=== PATIENT | male | born 2000 | race Caucasian/White ===

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

== ENCOUNTER 2020-02-17 04:28 | Emergency (ER) | payer BC, OTHER ==
[~2020-02-17] VITALS: Ht 188 cm; Wt 98.7 kg
--- OUTSIDE RECORDS SUMMARY | 2020-02-17 04:30 | XMS ---
PreManage Notification: ORESTES CAMARA Security Physician Chief Of Pathology Events No recent Security Events currently on file CRITERIA MET - [facility] Has Care Guidelines CARE PROVIDERS There are no care providers on record at this time. Guidelines Source: [facility] [place] Guidelines Date: 09/06/2018 Care Coordination: Has received mental health services with [facility].\T\nbsp; Please contact [facility] with mental health concerns.\T\nbsp; [phone]. E.D. VISIT COUNT (12 MO.) [address] [place] [address] TOTAL 2 NOTE: Visits indicate total known visits. ED/UCC VISIT TRACKING (12 MO.) 02/17/2020 04:29 [facility] [place] TYPE: Emergency COMPLAINT: - EAR PAIN 04/17/2019 20:24 [facility] [place] TYPE: Emergency COMPLAINT: - HEART PAIN INPATIENT VISIT TRACKING (12 MO.) No inpatient visits to display in this time frame [email or web address]
[2020-02-17] MEDS ORDERED: OFLOXACIN5 ML OTIC (04:46)
== END 2020-02-17 05:45 | disposition home or self-care (01) ==
LOC: ED 04:28
DX: H60.92 Unspecified otitis externa, left ear (principal); F90.9 Attention-deficit hyperactivity disorder, unspecified type; F17.200 Nicotine dependence, unspecified, uncomplicated; Z88.0 Allergy status to penicillin; Z88.8 Allergy status to other drugs, medicaments and biological substances; Z79.899 Other long term (current) drug therapy
CPT/HCPCS: 99282